=== PATIENT | female | born 1960 | race Caucasian/White ===

== ENCOUNTER 2021-08-19 23:43 | Emergency (ER) | payer OTHER ==
[2021-08-20] MEDS ORDERED: Ketorolac 30 MG/ML SDV IM ONE (00:09)
--- NOTE | 2021-08-20 00:12 | EDM.PDOC ---
ED HPI GENERAL MEDICAL PROBLEM - General Chief Complaint: Upper Extremity Injury/Pain Stated Complaint: INJURED RIGHT ARM Time Seen by Provider: 08/19/21 23:45 - History of Present Illness INITIAL COMMENTS - FREE TEXT/NARRATIVE: History of present illness: [] Patient with a history of low blood pressure says it is usually not this low but she feels good not orthostatic. She stepped on siding under snow that she did not see and slipped. She injured her right shoulder and right wrist. She has a lot of pain and she thinks that is causing her pulse and blood pressure to be low but she is not having any symptoms of orthostatic hypotension. She does not feel lightheaded. She is not diaphoretic. She does not have any pain anywhere else. She denies any neck pain. She walks without any pain in the lower extremities or back. Review of systems: As per history of present illness and below otherwise all systems reviewed and negative. Past medical history: As per history of present illness and as reviewed below otherwise noncontributory. Surgical history: As per history of present illness and as reviewed below otherwise noncontributory. Social history: No reported history of drug or alcohol abuse. Family history: As per history of present illness and as reviewed below otherwise noncontributory. Physical exam: Constitutional - well developed, well-nourished and in no acute distress HEENT - normocephalic, no evidence of trauma - external nose and mouth normal - no mass in neck and no JVD - mucosae moist EYES - full EOM, PERRL, no icterus - no evidence of inflammation, injection, or drainage Respiratory - no respiratory distress, equal bilateral expansion, lungs clear to auscultation and no abnormal lung sounds Cardiovascular - Regular Rhythm with S1 and S2 appreciated and no murmur, gallop or rub. GI - abdomen soft without distension or organomegaly - normal bowel sounds - no guard or rebound Musculoskeletal tender right shoulder and proximal humerus with tender right wrist and radial edge of her proximal hand with swelling there and hematoma visible. Otherwise no gross deformity of long bones or joints - no tenderness, swelling or edema Neurologic - Alert and oriented times four - CN II-XII grossly intact - motor sensory and coordination symmetrically normal Psychiatric - appropriate mood and affect with normal thought content Hematologic - No petechiae or purpura - mucosa appropriate color and sclera not pale - normal nail bed color and refill Integument - no rash or evidence of trauma - normal turgor Diagnostics: [] Therapeutics: [] Impression: [] Plan: [] Definitive disposition and diagnosis as appropriate pending reevaluation and review of above. Right Arm Pain Score (Numeric/FACES): 9 - Related Data Allergies Allergy/AdvReac Type Severity Reaction Status Date / Time No Known Allergies Allergy Verified 08/19/21 23:57 Home Meds: Home Meds Acetaminophen/oxyCODONE [Percocet 325-10 MG] 1 tab PO Q4H PRN #14 tab 08/20/21 [Rx] Past Medical History - Past Health History Medical/Surgical History: Denies Medical/Surgical History Social & Family History - Recreational Drug Use Recreational Drug Use: No Review of Systems - Review of Systems Review Of Systems: Comprehensive ROS is negative, except as noted in HPI. ED EXAM, GENERAL - Physical Exam Exam: See Below Free Text/Narrative:: My physical exam is in the HPI Course - Vital Signs Last Recorded V/S: Last Vital Signs Temp 36.1 C 08/19/21 23:59 Pulse 45 L 08/19/21 23:59 Resp 17 08/19/21 23:59 BP 85/38 L 08/19/21 23:59 Pulse Ox 98 08/19/21 23:59 - Orders/Labs/Meds Orders: Active Orders 24 hr Category Date Time Status Shoulder Comp Rt [CR] Stat Exams 08/20/21 00:10 Taken Wrist Comp Min 3V Rt [CR] Stat Exams 08/20/21 00:10 Taken Meds: Medications Discontinued Medications Generic Name Dose Route Start Last Admin Trade Name Demetra PRN Reason Stop Dose Admin Ketorolac Tromethamine 30 mg 08/20/21 00:09 08/20/21 00:26 Ketorolac 30 Mg/Ml Sdv IM 08/20/21 00:10 30 mg ONETIME ONE Administration Oxycodone/Acetaminophen 1 tab 08/20/21 00:46 08/20/21 00:50 Acetaminophen/Oxycodone 325-10 Mg Tab PO 08/20/21 00:47 1 tab ONETIME ONE Administration Departure - Departure Time of Disposition: 01:12 Disposition: Home, Self-Care 01 Condition: Good Clinical Impression: Fracture of neck of right humerus, Fracture, radius, distal - Discharge Information Instructions: Cast or Splint Care, Adult, [id number], Wrist Fracture Treated With Immobilization, [id number], Humerus Fracture Treated With Immobilization, [id number] Referrals: PCP,None [Primary Care Provider] - Salbador Kim MD [Ordering Only Provider] - Forms: ED Department Discharge Additional Instructions: Your prescription was sent to [facility] pharmacy. The treatment forYou should follow-up with a hand surgeon. If you go back to [place] follow-up with a hand surgeon and an orthopedist there. Hanging traction by sling shoulder fracture and a wrist fracture needs to be evaluated by hand surgeon because we need to have films repeated to make sure that it is healing properly and does not need any kind of manipulation. [facility] Care [address] [place] [id number] [facility] [address] [place] [id number] The following information is given to patients seen in the emergency department who are being discharged to home. This information is to outline your options for follow-up care. We provide all patients seen in our emergency department with a follow-up referral. The need for follow-up, as well as the timing and circumstances, are variable depending upon the specifics of your emergency department visit. If you don't have a primary care physician on staff, we will provide you with a referral. We always advise you to contact your personal physician following an emergency department visit to inform them of the circumstance of the visit and for follow-up with them and/or the need for any referrals to a consulting specialist. The emergency department will also refer you to a specialist when appropriate. This referral assures that you have the opportunity for follow-up care with a specialist. All of these measure are taken in an effort to provide you with optimal care, which includes your follow-up. Under all circumstances we always encourage you to contact your private physician who remains a resource for coordinating your care. When calling for follow-up care, please make the office aware that this follow-up is from your recent emergency room visit. If for any reason you are refused follow-up, please contact the [facility] Emergency Department at and asked to speak to the emergency department charge nurse. Sepsis Event Note (ED) - Evaluation Sepsis Screening Result: No Definite Risk - Focused Exam Vital Signs: Vital Signs Temp Pulse Resp BP Pulse Ox 08/19/21 23:59 36.1 C 45 L 17 85/38 L 98 - My Orders Last 24 Hours: My Active Orders 08/20/21 00:10 Shoulder Comp Rt [CR] Stat Wrist Comp Min 3V Rt [CR] Stat - Assessment/Plan Last 24 Hours: My Active Orders 08/20/21 00:10 Shoulder Comp Rt [CR] Stat Wrist Comp Min 3V Rt [CR] Stat
[2021-08-20] MEDS ORDERED: Acetaminophen/oxyCODONE 325-10 MG Tab PO ONE ×2 (00:46→01:14)
--- NOTE | 2021-08-20 01:13 | CR ---
INDICATION: Shoulder pain following fall. Limited mobility TECHNIQUE: Shoulder radiograph 2 views right COMPARISON: None FINDINGS: Bone: There is an impacted and angulated fracture at the surgical neck of the humerus. Joint: The glenohumeral joint is unremarkable. Severe osteoarthritis of the AC joint is noted. Soft tissue: Unremarkable. The visualized hemithorax is unremarkable in appearance. No radiopaque foreign bodies are seen. IMPRESSION: 1. There is an impacted and angulated fracture at the surgical neck of the humerus. Dictated by Nayan Rodriguez MD @ 08/20/2021 1:11:55 AM Dictated by: Nayan Rodriguez MD @ 08/20/2021 01:11:59 (Electronically Signed)
--- NOTE | 2021-08-20 01:15 | CR ---
INDICATION: Wrist pain following fall. Limited mobility TECHNIQUE: Wrist radiograph 3 views right COMPARISON: None FINDINGS: Bone: No acute fractures or aggressive bone lesions are identified. Small corticated ossicles are seen near the radial styloid and the distal radioulnar joint. Joint: Mild widening of the scapholunate joint is noted. Soft tissue: Mild swelling noted along the ulnar wrist and thenar eminence. No radiopaque foreign bodies are seen. IMPRESSIONS: 1. No acute osseous injuries or abnormalities are noted. 2. Mild widening of the scapholunate joint is noted. This can be due to injury of the associated scapholunate ligament. Without prior comparison studies, the age is indeterminate. Dictated by Nayan Rodriguez MD @ 08/20/2021 1:12:48 AM Dictated by: Nayan Rodriguez MD @ 08/20/2021 01:13:25 (Electronically Signed)
== END 2021-08-20 01:44 | disposition home or self-care (01) ==
LOC: MW.ED 23:43
DX: S42.211A Unspecified displaced fracture of surgical neck of right humerus, initial encounter for closed fracture (principal); S52.501A Unspecified fracture of the lower end of right radius, initial encounter for closed fracture; W01.0XXA Fall on same level from slipping, tripping and stumbling without subsequent striking against object, initial encounter
CPT/HCPCS: 73030; 73110; 96372; 99283; A9270; J1885